=== PATIENT | male | born 1945 | race Caucasian/White ===

== ENCOUNTER → 2020-07-19 | Outpatient (CLI) | payer MEDICARE, BC ==
[~2020-07-19] MED LIST: ASPIRIN325 M2 PO; ATORVASTATIN CA80 MG PO; DAILY VITAMIN1 EAC3 PO; HUMALOG100 UNIT/3 SQ; LANTUS100 UNITS/ SC; LEVOTHYROXINE PO; METFORMIN HCL500 MG PO; MULTI-VITAMIN1 EACH PO; NITROFURANTOIN100 MG PO; VITAMIN D PO; Z.0.ACTOS45 MG PO; Z.0.GLIPIZIDE5 MG PO; Z.0.GLUCOPHAGE1000 M PO; Z.0.HYDROCHLOROTHIA5 PO; Z.0.JANUVIA100 MG PO; Z.0.TOPROL XL50 MG PO; Z.0.VYTORIN 10-801 E PO; Z.0.ZESTRIL5 MG PO
--- NOTE | 2020-07-19 09:34 | Diagnostic Imaging Report ---
MRI of the left shoulder without contrast. History: Shoulder pain. Rotator cuff tear. Decreased range of motion. Muscle strain. Impingement syndrome. Comparison: None Technique: Coronal PD FS, sagital PD FS, and axial PD and PD FS. Findings: Rotator cuff: Rotator cuff tendinosis with midsubstance degeneration and articular sided fraying/low-grade partial tearing involving anterior fibers of the supraspinatus tendon at the humeral insertion site best seen on sagittal image 8. No retraction or muscle atrophy. Additionally, there is infraspinatus and subscapularis tendinosis. The teres minor tendon is intact Osseous acromion complex: Type II acromion with mild lateral downsloping. Moderate degenerative arthrosis at the acromioclavicular joint with undersurface spurring and mild narrowing of the supraspinatus tendon outlet. Glenohumeral joint: Degeneration and fraying of the labrum. The articular cartilage surfaces are thinned. The humeral head is well-seated in the glenoid fossa. Small effusion and mild synovitis in the rotator interval and subcoracoid space. Biceps tendon: Intra-articular biceps tendinosis with fraying at the biceps anchor. Other findings: Negative for muscle denervation or osseous fracture. Impression: Rotator cuff tendinosis with midsubstance degeneration and articular sided fraying/low-grade partial tearing involving anterior fibers of the supraspinatus tendon at the humeral insertion site. Moderate degenerative arthrosis at the acromioclavicular joint with undersurface spurring and mild narrowing of the supraspinatus tendon outlet. Intra-articular biceps tendinosis with fraying at the biceps anchor. Signed by: Dr. Elieser Landin M.D. on 07/19/2020 9:30 AM
--- NOTE | 2020-07-19 10:11 | Diagnostic Imaging Report ---
MRI of the pelvis without contrast. History: Sacroiliac joint pain. Pelvic pain. Pain not responding to conservative management Technique: Multiplanar multisequence MRI of the pelvis without contrast Comparison: CT scan 04/07/2015 Findings: No acute fracture, dislocation or evidence of avascular necrosis. Scattered degenerative change about the visualized lower lumbar spine, sacroiliac joints, pelvis and hips. No osseous erosion or bony ankylosis. Prominent heterogeneous prostate gland with nonspecific prominence of the right seminal vesicle best seen on series 3 image 18. The urinary bladder and remainder of the visualized pelvic structures are otherwise grossly unremarkable. No free pelvic fluid or pelvic lymphadenopathy is seen. The visualized muscles are normal in size, signal intensity and morphology. No muscle or tendon tear is seen. No evidence to suggest greater trochanteric bursitis. The visualized neurovascular bundles are intact. Impression: No acute fracture, dislocation or evidence of avascular necrosis. Scattered degenerative change about the visualized lower lumbar spine, sacroiliac joints, pelvis and hips. No osseous erosion or bony ankylosis. Prominent heterogeneous prostate gland with nonspecific prominence of the right seminal vesicle Signed by: Dr. Elieser Landin M.D. on 07/19/2020 10:08 AM
== END ==
LOC: MRI 07:33
PROVIDERS: ATTEND Family Medicine
DX: M53.3 Sacrococcygeal disorders, not elsewhere classified (principal); S46.012A Strain of muscle(s) and tendon(s) of the rotator cuff of left shoulder, initial encounter; M75.42 Impingement syndrome of left shoulder
CPT/HCPCS: 72195

== ENCOUNTER → 2022-02-08 | Outpatient (CLI) | payer MEDICARE, BC ==
[~2022-02-08] MED LIST changes: +IOPAMIDOL 370 MG/ML 100 ML INFUS..BTL INJ ONE
[2022-02-08 16:49] LABS: CREATININE, SERUM 0.84 mg/dL (0.72-1.25)
== END ==
LOC: CT 16:02
PROVIDERS: ATTEND Family Medicine
DX: R10.11 Right upper quadrant pain (principal); R63.4 Abnormal weight loss
CPT/HCPCS: 36415; 74177; 82565; 84520; Q9967

== ENCOUNTER → 2022-02-27 | Outpatient (CLI) | payer MEDICARE, BC ==
[2022-02-27 08:47] LABS: CREATININE, SERUM 0.87 mg/dL (0.72-1.25)
== END ==
LOC: CT 08:04
PROVIDERS: ATTEND Family Medicine
DX: N28.9 Disorder of kidney and ureter, unspecified (principal)
CPT/HCPCS: 36415; 74170; 82565; 84520; Q9967